=== PATIENT | female | born 1990 | race Caucasian/White ===

== ENCOUNTER 2023-10-27 22:50 | Emergency (ER) | payer OTHER ==
[~2023-10-27] VITALS: Ht 162.6 cm; Wt 86.0 kg
[2023-10-27 22:58] VITALS: TEMP 98; O2SAT 100
[2023-10-28 01:06] LABS: BASOPHILS % 0.4 % (0.0-2.0); EOSINOPHILS % 1.7 % (0.0-5.0); HEMATOCRIT. 39.8 % (36.0-48.0); HEMOGLOBIN. 13.7 g/dL (12.0-16.0); LYMPHOCYTES % 35.9 % (20.0-50.0); MEAN CORPUSCULAR HEMOGLOBIN 30.2 pg (28.0-32.0); MEAN CORPUSCULAR HGB CONC 34.3 g/dL (31.0-37.0); MEAN CORPUSCULAR VOLUME 87.9 fL (81.0-99.0); MEAN PLATELET VOLUME 7.9 fl (7.4-10.4); MONOCYTES % 5.9 % (2.0-8.0); NEUTROPHILS % 56.1 % (40.0-76.0); PLATELET 245 x1000/uL (130-400); RED BLOOD CELL COUNT 4.52 mill/uL (4.2-5.4); RED CELL DISTRIBUTION WIDTH 13.7 % (11.6-14.6); WHITE BLOOD COUNT 7.6 x1000/uL (4.5-11.0)
[2023-10-28 01:12] LABS: CHLORIDE 104 mEq/L (98-107); POTASSIUM 3.9 mEq/L (3.5-5.1); SODIUM 138 mEq/L (136-145)
[2023-10-28 01:13] LABS: CALCIUM 9.4 mg/dL (8.7-10.4); CARBON DIOXIDE 28 mEq/L (21-32)
[2023-10-28 01:18] LABS: CREATININE 0.8 mg/dL (0.6-1.0); GLUCOSE 102 mg/dL (70-105); UREA NITROGEN BLOOD 10 mg/dL (9-23)
[2023-10-28 01:22] LABS: TROPONIN I HIGH SENSITIVITY < 4 ng/L (3.0-34)
[2023-10-28 02:59] VITALS: BP 118/57; PULSE 61; RESP 18
== END 2023-10-28 03:14 | disposition home or self-care (01) ==
LOC: ER 22:50
DX: R07.89 Other chest pain (principal)
CPT/HCPCS: 36415; 71045; 80048; 81025; 84484; 85025; 93005; 99285

== ENCOUNTER 2024-04-15 12:29 | Emergency (ER) | payer OTHER ==
[~2024-04-15] VITALS: Ht 162.6 cm; Wt 87.0 kg
[2024-04-15 12:30] VITALS: O2SAT 98
[2024-04-15 15:35] LABS: CLARITY URINE CLOUDY (CLEAR); COLOR URINE YELLOW (YELLOW); GLUCOSE URINE NEGATIVE (NEGATIVE); KETONES URINE NEGATIVE (NEGATIVE); LEUKOCYTE ESTERASE URINE 2+ (NEGATIVE); NITRITE URINE NEGATIVE (NEGATIVE); OCCULT BLOOD URINE NEGATIVE (NEGATIVE); PH URINE 5.5 (4.5-8.0); PROTEIN URINE NEGATIVE (NEGATIVE); SPECIFIC GRAVITY URINE 1.029 (1.005-1.030); UROBILINOGEN URINE 0.2 E.U./dL (0.2-1.0)
[2024-04-15 16:02] LABS: BACTERIA URINE TRACE; RBC URINE 0-2 /hpf (0-2); SQUAMOUS EPITHELIAL CELL URINE RARE /lpf (RARE/1+); WBC URINE 25-50 /hpf (0-2)
[2024-04-15] MEDS ORDERED: CEFP200T13 MT (16:40)
[2024-04-15 16:50] VITALS: BP 132/72; PULSE 74; RESP 18; TEMP 36.78072; O2SAT 98
== END 2024-04-15 16:56 | disposition home or self-care (01) ==
LOC: ER 12:29
DX: M53.3 Sacrococcygeal disorders, not elsewhere classified (principal); R10.9 Unspecified abdominal pain; M54.50 Low back pain, unspecified
CPT/HCPCS: 81003; 81025; 87077; 99283